=== PATIENT | male | born 1955 | race Caucasian/White ===

== ENCOUNTER 2023-08-23 16:30 | Emergency (ER) | payer OTHER ==
[~2023-08-23 16:30] MED LIST: Iopamidol 370 76% 100 ML VIAL ONE; Sodium Chloride 0.9% 100 ML BAG ONE
[2023-08-23] MEDS ORDERED: Aspirin Chewable 81 MG TAB ONE (16:41)
[2023-08-23 16:53] LABS: #Basophils 0.1 thou/uL (0.0-0.2); #Eosinphils 0.1 thou/uL (0.0-0.7); #Lymphocytes 2.4 thou/uL (1.20-3.40); #Monocytes 0.5 thou/uL (0.11-0.59); #Neutrophils 3.5 thou/uL (1.40-6.50); %Basophils 1.3 % (0.0-1.0); %Eosinophils 1.6 % (0.0-10.0); %Lymphocytes 36.7 % (21.0-51.0); %Monocytes 7.6 % (0.0-10.0); %Neutrophils 52.8 % (42.0-75.0); Hematocrit 50.8 % (42.0-52.0); Hemoglobin 16.1 g/dL (14.0-18.0); Mean Corpuscular HGB CONC 31.7 g/dL (32.0-36.0); Mean Corpuscular Hemoglobin 28.7 pg (27.0-31.0); Mean Corpuscular Volume 90.6 fl (78.0-98.0); Mean Platelet Volume 8.9 fL (7.4-10.4); Platelet Count 212 10x3/uL (130-400); RBC Distribution Width 13.5 % (11.5-14.5); Red Blood Cell (RBC) Count 5.61 mill/uL (4.70-6.10); White Blood Cell (WBC) Count 6.5 10x3/uL (4.8-10.8)
[2023-08-23] MEDS ORDERED: Ondansetron PF 4 MG/2 ML Vial ONE (16:54)
[2023-08-23] MEDS ORDERED: Morphine 4 MG/ML VIAL ONE (16:54)
[2023-08-23] MEDS ORDERED: Nitroglycerin 50 MG/250 ML BOT 250 ML ONE ×2 (16:55→17:21)
[2023-08-23 17:05] LABS: Prothrombin Time 13.3 sec (12.0-14.7)
[2023-08-23 17:11] LABS: PTT 20.1 sec (22.9-36.1)
[2023-08-23 17:14] LABS: Anion Gap 20 mmol/L (10-20); BUN (Urea Nitrogen) 16 mg/dL (8.4-25.7); Calc. Creatinine Clearance 0 mL/min (70-130); Calcium 9.2 mg/dL (7.8-10.44); Carbon Dioxide 18 mmol/L (23-31); Chloride 106 mmol/L (98-107); Estimated GFR 67; Glucose 151 mg/dL (80-115); Lipase 32 U/L (8-78); Potassium 3.7 mmol/L (3.5-5.1); Sodium 140 mmol/L (136-145)
[2023-08-23 17:16] LABS: Troponin I Less than 0.010 ng/mL (< 0.028)
[2023-08-23 17:28] LABS: D-Dimer Test 0.68 *mcg/mL (0.27-0.43)
== END 2023-08-23 19:34 | disposition short-term general hospital (02) ==
LOC: MADERS 16:30
DX: I20.9 Angina pectoris, unspecified (principal); R07.89 Other chest pain
CPT/HCPCS: 36416; 71045; 71275; 80048; 83690; 83880; 84484; 85025; 85379; 85610; 85730; 93005; 96374; 96375; J2270; J2405; Q9967